=== PATIENT | male | born 1980 | race American Indian/Alaskan Native ===

== ENCOUNTER 2018-03-12 14:47 | Emergency (ER) | payer OTHER ==
[2018-03-12 15:08] VITALS: RESP 18; TEMP 99.3; O2SAT 100; BMI 27.0
[2018-03-12] MEDS ORDERED: Sodium Chloride 0.9% 1,000 ML IV STA (15:46)
--- NOTE | 2018-03-12 16:00 | ED PDOC ---
Arrival/HPI - General Chief Complaint: Headache Time Seen by Provider: 03/12/18 15:21 Historian: Patient - History of Present Illness Narrative History of Present Illness (Text): 03/12/18 15:58 37yo male with no PMHx present with 2days history of generalized malaise, headache, subjective fever,chills, nausea and vomiting. States he took ASA earlier today. Denies abdominal pain, diarrhea, constipation, cough, URI symptoms, neck pain, nuchal ridgity, recent travel, sick contact. Past Medical History - Provider Review Nursing Documentation Reviewed: Yes - Infectious Disease Hx of Infectious Diseases: None - Psychiatric Hx Substance Use: No Family/Social History - Physician Review Nursing Documentation Reviewed: Yes Family/Social History: Unknown Family HX Smoking Status: Never Smoked Hx Alcohol Use: No Hx Substance Use: No Allergies/Home Meds Allergies/Adverse Reactions: Allergies No Known Allergies Allergy (Verified 03/12/18 18:47) Review of Systems - Physician Review All systems were reviewed & negative as marked: Yes - Review of Systems Constitutional: Fatigue, Fevers Eyes: Normal ENT: Normal Respiratory: Normal Cardiovascular: Normal Gastrointestinal: Nausea, Vomiting. absent: Abdominal Pain, Constipation, Diarrhea, Hematemesis Genitourinary Male: Normal Musculoskeletal: Normal Skin: Normal Neurological: Headache. absent: Dizziness, Focal Weakness, Gait Changes, Speech Changes Endocrine: Normal Hemo/Lymphatic: Normal Psychiatric: Normal Physical Exam Vital Signs Reviewed: Yes Vital Signs Temp Pulse Resp BP Pulse Ox 03/12/18 17:05 87 18 124/81 100 03/12/18 14:48 99.3 F 64 18 133/92 H 100 Temperature: Afebrile Blood Pressure: Normal Pulse: Regular Respiratory Rate: Normal Appearance: Positive for: Well-Appearing, Non-Toxic, Comfortable Pain Distress: None Mental Status: Positive for: Alert and Oriented X 3 - Systems Exam Head: Present: Atraumatic, Normocephalic Pupils: Present: PERRL Extroacular Muscles: Present: EOMI Conjunctiva: Present: Normal Mouth: Present: Moist Mucous Membranes Neck: Present: Normal Range of Motion Respiratory/Chest: Present: Clear to Auscultation, Good Air Exchange. No: Respiratory Distress, Accessory Muscle Use, Wheezes, Decreased Breath Sounds, Rales, Retracting, Rhonchi Cardiovascular: Present: Regular Rate and Rhythm, Normal S1, S2. No: Murmurs Abdomen: Present: Other (Soft). No: Tenderness, Distention, Peritoneal Signs, Rebound, Guarding, McBurney's Point Tender, Rovsing's Sign Present Back: Present: Normal Inspection Upper Extremity: Present: Normal Inspection. No: Cyanosis, Edema Lower Extremity: Present: Normal Inspection. No: Edema Neurological: Present: GCS=15, CN II-XII Intact, Speech Normal Skin: Present: Warm, Dry, Normal Color. No: Rashes Psychiatric: Present: Alert, Oriented x 3, Normal Insight, Normal Concentration Medical Decision Making ED Course and Treatment: 03/12/18 17:52 37yo male in ED for malaise, headache, subjective fever/chills x2days. Lab was ordered 1L NS, Toradol 30mg, Zofran ordered Lab was unremarkable with exception of leukopenia, likely secondary to viral syndrome. He had no meningeal signs and denied neck pain in ED. On re evaluation he notes that his symptoms improved in ED with medication. Result was DW the pt and he will be DC home and advised to take analgesic for symptomatic tx and drink plenty of fluid. Advised to f/u with his PMD/clinc for repeat CBC for leukopenia resolution. Advised TRT ED for any new or worsening symptoms. - Lab Interpretations Lab Results: 03/12/18 16:00 03/12/18 16:00 Lab Results 03/12/18 17:55: Urine Color Yellow, Urine Appearance Clear, Urine pH 6.0, Ur Specific [place] 1.025, Urine Protein Negative, Urine Glucose (UA) Negative, Urine Ketones Negative, Urine Blood Negative, Urine Nitrate Negative, Urine Bilirubin Negative, Urine Urobilinogen 0.2, Ur Leukocyte Esterase Negative 03/12/18 16:00: Influenza Typ A,B (EIA) Negative for flu a/b 03/12/18 16:00: Sodium 137, Potassium 3.6, Chloride 100, Carbon Dioxide 26, Anion Gap 14, BUN 17, Creatinine 1.0, Est GFR ( Amer) > 60, Est GFR (Non- Af Amer) > 60, Random Glucose 105, Calcium 9.1, Total Bilirubin 0.2, AST 32, ALT 23, Alkaline Phosphatase 38, Total Creatine Kinase 210, Total Protein 6.8, Albumin 4.0, Globulin 2.8, Albumin/Globulin Ratio 1.4 03/12/18 16:00: PT 12.2, INR 1.07, APTT 29.5 03/12/18 16:00: WBC 3.1 L, RBC 4.91, Hgb 13.3 L, Hct 39.6 L, MCV 80.7, MCH 27.1 , MCHC 33.6, RDW 13.8, Plt Count 146, MPV 9.4, Gran % 38.3 L, Lymph % (Auto) 44.7 H, [place] % (Auto) 16.6 H, Eos % (Auto) 0.0 L, Baso % (Auto) 0.4, Gran # 0.90 L, Lymph # (Auto) 1.1 L, [place] # (Auto) 0.4, Eos # (Auto) 0.0, Baso # (Auto ) 0.01, ESR 5 - Medication Orders Current Medication Orders: Discontinued Medications Sodium Chloride (Sodium Chloride 0.9%) 1,000 mls @ 999 mls/hr IV .Q1H1M STA Stop: 03/12/18 16:46 Last Admin: 03/12/18 15:56 Dose: 999 mls/hr eMAR Start Stop Document 03/12/18 15:56 OCS (Rec: 03/12/18 15:56 OCS [id number]) Intravenous Solution Start Date 03/12/18 Start Time 15:56 End Date 03/12/18 End time 16:57 Total Infusion Time 61 Ketorolac Tromethamine (Toradol) 30 mg IVP STAT STA Stop: 03/12/18 15:48 Last Admin: 03/12/18 15:56 Dose: 30 mg MAR Pain Assessment Document 03/12/18 15:56 OCS (Rec: 03/12/18 15:56 OCS [id number]) Pain Reassessment Is this a pain reassessment? Yes Sleep Is patient sleeping during reassessment? No Presence of Pain Presence of Pain Yes Pain Scale Used Pain Scale Used Numeric Location Pain Location Body Site Generalized Description Description Constant Intensity of Pain at present 10 Pain Behavior Facial Grimacing Aggravating Factors ADL's IVP Administration Document 03/12/18 15:56 OCS (Rec: 03/12/18 15:56 OCS [id number]) Charges for Administration # of IVP Administrations 1 Ondansetron HCl (Zofran Inj) 4 mg IVP STAT STA Stop: 03/12/18 15:47 Last Admin: 03/12/18 15:56 Dose: 4 mg IVP Administration Document 03/12/18 15:56 OCS (Rec: 03/12/18 15:56 OCS [id number]) Charges for Administration # of IVP Administrations 1 Disposition/Present on Arrival - Present on Arrival Any Indicators Present on Arrival: No History of DVT/PE: No History of Uncontrolled Diabetes: No Urinary Catheter: No History of Decub. Ulcer: No History Surgical Site Infection Following: None - Disposition Have Diagnosis and Disposition been Completed?: Yes Diagnosis: Viral syndrome Disposition: HOME/ ROUTINE Disposition Time: 18:15 Patient Plan: Discharge Condition: STABLE Discharge Instructions (ExitCare): Viral Syndrome (DC) Additional Instructions: Follow up with your doctor/Clinic Drink plenty of fluid and take Ibuprofen every 6hrs for pain Return to ED for any new or worsening symptoms Prescriptions: Ibuprofen [Motrin Tab] 600 mg PO Q6 #20 tab Ondansetron ODT [Zofran ODT] 4 mg PO Q6 #7 odt Referrals: PCP,NO [Primary Care Provider] - Follow up with primary Forms: [employer] (South African)
[2018-03-12 16:24] LABS: BASO # 0.01 K/mm3 (0.0-2.0); BASO % 0.4 % (0.0-3.0); GRAN # 0.9 (1.4-6.5); GRAN % 38.3 % (50.0-68.0); HEMOGLOBIN 13.3 g/dL (14.0-18.0); LYMPH # 1.1 (1.2-3.4); LYMPH % 44.7 % (22.0-35.0); MEAN CELL VOLUME 80.7 fl (80.0-105.0); MEAN CORPUSCULAR HEMOGLOBIN 27.1 pg (25.0-35.0); MEAN CORPUSCULAR HGB CONC 33.6 g/dl (31.0-37.0); MEAN PLATELET VOLUME 9.4 fl (7.0-11.0); MONO # 0.4 (0.1-0.6); MONO % 16.6 % (1.0-6.0); RBC 4.91 10^6/uL (3.5-6.1); RED CELL DISTRIBUTION WIDTH 13.8 % (11.5-14.5)
[2018-03-12 16:26] LABS: WHITE BLOOD COUNT 3.1 10^3/ul (4.5-11.0)
[2018-03-12 16:33] LABS: ALB/GLOB RATIO 1.4 (1.1-1.8); ALT/SGPT 23 U/L (7-56); AST/SGOT 32 U/L (17-59); BLOOD UREA NITROGEN 17 mg/dL (7-21); CALCIUM 9.1 mg/dL (8.4-10.5); GFR AFRICAN-AMERICAN > 60; GFR NON-AFRICAN AMERICAN > 60
[2018-03-12 17:01] LABS: INR 1.07 (0.93-1.08); PARTIAL THROMBOPLASTIN TIME 29.5 Seconds (25.1-36.5); PROTHROMBIN TIME 12.2 SECONDS (9.4-12.5)
[2018-03-12 17:06] VITALS: BP 124/81; PULSE 87
[2018-03-12 18:10] LABS: URINE BILIRUBIN NEGATIVE (NEGATIVE); URINE BLOOD NEGATIVE (NEGATIVE); URINE GLUCOSE (UA) NEGATIVE (NEGATIVE); URINE LEUKOCYTE ESTERASE NEGATIVE Leu/uL (NEGATIVE); URINE UROBILINOGEN 0.2 E.U./dL (<1 E.U./dL)
[2018-03-12 18:17] LABS: URINE APPEARANCE CLEAR (CLEAR); URINE COLOR YELLOW (YELLOW); URINE PROTEIN NEGATIVE mg/dL (<30 mg/dL)
== END 2018-03-12 18:37 | disposition home or self-care (01) ==
LOC: ED 14:47
DX: B34.9 Viral infection, unspecified (principal)
CPT/HCPCS: 80053; 81003; 82550; 85025; 85610; 85651; 85730; 87804; 96361; 96374; 96375; 99285; J1885; J2405; J7040

== ENCOUNTER 2018-08-27 12:36 | Emergency (ER) | payer OTHER ==
[2018-08-27 13:14] VITALS: BP 132/80; PULSE 73; RESP 18; TEMP 98.8; O2SAT 100; BMI 25.0
[2018-08-27] MEDS ORDERED: Naproxen 550 mg Tab PO STA (13:18)
--- NOTE | 2018-08-27 13:29 | ED PDOC ---
Arrival/HPI - General Chief Complaint: Finger,Hand,&Wrist Time Seen by Provider: 08/27/18 13:05 Historian: Patient - History of Present Illness Narrative History of Present Illness (Text): 08/27/18 13:10 37 year old male, with no significant past medical history, who presents to the emergency department complaining of bilateral wrist pain for past 3 months, worse yesterday. Patient states he saw a doctor for this before and was given pain medication, with significant relief but symptoms returned. Patient denies taking any current medications, any injury, or any other complaints. Time/Duration: 24 hours (onset 3 months ago, but worse yesterday ) Symptom Onset: Gradual Symptom Course: Unchanged Activities at Onset: Light Past Medical History - Provider Review Nursing Documentation Reviewed: Yes - Infectious Disease Hx of Infectious Diseases: None - Psychiatric Hx Substance Use: No - Anesthesia Hx Anesthesia: No Hx Anesthesia Reactions: No Hx Malignant Hyperthermia: No Family/Social History - Physician Review Nursing Documentation Reviewed: Yes Family/Social History: No Known Family HX Smoking Status: Never Smoked Hx Alcohol Use: No Hx Substance Use: No Allergies/Home Meds Allergies/Adverse Reactions: Allergies No Known Allergies Allergy (Verified 03/12/18 18:47) Review of Systems - Physician Review All systems were reviewed & negative as marked: Yes - Review of Systems Musculoskeletal: Other (patient notes bilateral wrist pain for past 3 months, worse yesterday). absent: Normal Physical Exam Vital Signs Reviewed: Yes Vital Signs Temp Pulse Resp BP Pulse Ox 08/27/18 13:12 98.8 F 73 18 132/80 100 Temperature: Afebrile Blood Pressure: Normal Pulse: Regular Respiratory Rate: Normal Appearance: Positive for: Well-Appearing, Non-Toxic, Comfortable Pain Distress: Mild Mental Status: Positive for: Alert and Oriented X 3 - Systems Exam Head: Present: Atraumatic, Normocephalic Pupils: Present: PERRL Extroacular Muscles: Present: EOMI Conjunctiva: Present: Normal Mouth: Present: Moist Mucous Membranes Neck: Present: Normal Range of Motion Respiratory/Chest: Present: Clear to Auscultation, Good Air Exchange. No: Respiratory Distress, Accessory Muscle Use Cardiovascular: Present: Regular Rate and Rhythm, Normal S1, S2. No: Murmurs Abdomen: No: Tenderness, Distention, Peritoneal Signs Back: Present: Normal Inspection Upper Extremity: Present: Other (Pain with ulnar deviation of right wrist). No: Normal Inspection, Cyanosis, Edema Lower Extremity: Present: Normal Inspection. No: Edema Neurological: Present: GCS=15, CN II-XII Intact, Speech Normal Skin: Present: Warm, Dry, Normal Color. No: Rashes Psychiatric: Present: Alert, Oriented x 3, Normal Insight, Normal Concentration Medical Decision Making ED Course and Treatment: 08/27/18 13:10 Impression: 37 year old male presents to the Emergency department bilateral wrist pain for past 3 months, worse yesterday. Differential Diagnosis included but are not limited to: Plan: -- Anaprox DS -- X-Ray of left wrist, 3 views -- X-ray of right wrist, 3 views -- Reassess and disposition Prior Visits: Notes and results from previous visits were reviewed. Patient was last seen in the emergency department on 03/12/18 with 2days history of generalized malaise, headache, subjective fever,chills, nausea and vomiting. Patient was discharged home in stable condition, given instructions for care and diagnosed with viral syndrome. Progress Notes: 08/27/18 17:33 xr neg pain with ulna deviation no fever, normal rom. advise out pt fu. suspect dequavain tenosynovitis. - RAD Interpretation Narrative RAD Interpretations (Text): X-Ray of right wrist reviewed by radiologist, shows: Dictator : DR. Vann, Karina CESPEDES Report Date : 08/27/2018 14:07:28 FINDINGS: BONES: Bone alignment and mineralization are normal. There is no acute displaced fracture or bone destruction. JOINTS: Normal. No dislocation. SOFT TISSUES: Normal. OTHER FINDINGS: None. IMPRESSION: No acute fracture or dislocation. X-Ray of left wrist reviewed by radiologist, shows: Dictator : Karina Edmondson Report Date : 08/27/2018 14:07:05 FINDINGS: BONES: Bone alignment and mineralization are normal. There is no acute displaced fracture or bone destruction. JOINTS: Normal. No dislocation. SOFT TISSUES: Normal. OTHER FINDINGS: None. IMPRESSION: No acute fracture or dislocation. Radiology Orders: 08/27/18 13:18 WRIST, LEFT 3 VIEWS [RAD] Stat WRIST, RIGHT 3 VIEWS [RAD] Stat Rough And Trueing Machine Operator: Radiologist - Medication Orders Current Medication Orders: Discontinued Medications Naproxen (Anaprox Ds) 550 mg PO STAT STA Stop: 08/27/18 13:19 - Scribe Statement The provider has reviewed the documentation as recorded by the Scribe Trupti Peraza All medical record entries made by the Scribe were at my direction and personally dictated by me. I have reviewed the chart and agree that the record accurately reflects my personal performance of the history, physical exam, medical decision making, and the department course for this patient. I have also personally directed, reviewed, and agree with the discharge instructions and disposition. Disposition/Present on Arrival - Present on Arrival Any Indicators Present on Arrival: No History of DVT/PE: No History of Uncontrolled Diabetes: No Urinary Catheter: No History of Decub. Ulcer: No History Surgical Site Infection Following: None - Disposition Have Diagnosis and Disposition been Completed?: Yes Diagnosis: Tenosynovitis Disposition: HOME/ ROUTINE Disposition Time: 01:00 Condition: STABLE Discharge Instructions (ExitCare): Tenosynovitis (DC) Additional Instructions: followup with specialist. return to er with worsening symptoms or concerns. Prescriptions: RX: Naproxen 500 mg PO BID PRN #20 tablet PRN Reason: Pain, Mild (1-3) Referrals: Yovani Martin DO [Staff Provider] - Follow up with primary Forms: [employer] (Macedonian)
--- NOTE | 2018-08-27 14:12 | RAD ---
Date of service: 08/27/2018 PROCEDURE: Right Wrist Radiographs. HISTORY: pain x 3 mo COMPARISON: None. FINDINGS: BONES: Bone alignment and mineralization are normal. There is no acute displaced fracture or bone destruction. JOINTS: Normal. No dislocation. SOFT TISSUES: Normal. OTHER FINDINGS: None. IMPRESSION: No acute fracture or dislocation.
== END 2018-08-27 14:33 | disposition home or self-care (01) ==
LOC: ED 12:36
DX: M65.9 Synovitis and tenosynovitis, unspecified (principal)

== ENCOUNTER 2019-03-26 09:09 | Emergency (ER) | payer OTHER ==
[2019-03-26 09:28] VITALS: BMI 24.3
--- NOTE | 2019-03-26 09:53 | ED PDOC ---
Arrival/HPI - General Chief Complaint: Back Pain Historian: Patient - History of Present Illness Narrative History of Present Illness (Text): 03/26/19 09:50 38 y/o male, pmh including tenosynovitis, nkda, c/o rt. lower back pain with no fall or trauma. Aching pain started this morning, associated with spasm, no numbness or tingling, no urinary symptoms, no flank pain, no hematuria, no nausea/vomiting/abdominal pain, no diarrhea, no rash, no other medical or psychological complaints. Past Medical History - Provider Review Nursing Documentation Reviewed: Yes - Infectious Disease Hx of Infectious Diseases: None - Cardiac Hx Cardiac Disorders: No - Pulmonary Hx Respiratory Disorders: No - Neurological Hx Neurological Disorder: No - HEENT Hx HEENT Disorder: No - Renal Hx Renal Disorder: No - Endocrine/Metabolic Hx Endocrine Disorders: No - Hematological/Oncological Hx Blood Disorders: No - Integumentary Hx Dermatological Disorder: No - Musculoskeletal/Rheumatological Hx Musculoskeletal Disorders: No - Gastrointestinal Hx Gastrointestinal Disorders: Yes Hx Constipation: Yes - Genitourinary/Gynecological Hx Genitourinary Disorders: No - Psychiatric Hx Psychophysiologic Disorder: No Hx Substance Use: No - Anesthesia Hx Anesthesia: No Hx Anesthesia Reactions: No Hx Malignant Hyperthermia: No Family/Social History - Physician Review Nursing Documentation Reviewed: Yes Family/Social History: Unknown Family HX Smoking Status: Never Smoked Hx Alcohol Use: Yes Frequency of alcohol use: Socially Hx Substance Use: No Allergies/Home Meds Allergies/Adverse Reactions: Allergies No Known Allergies Allergy (Verified 03/26/19 09:28) Review of Systems - Review of Systems Constitutional: absent: Fatigue, Fevers Eyes: absent: Vision Changes ENT: absent: Hearing Changes Respiratory: absent: SOB, Cough, Sputum Cardiovascular: absent: Chest Pain Gastrointestinal: absent: Abdominal Pain, Diarrhea, Nausea, Vomiting Musculoskeletal: Back Pain, Myalgias. absent: Arthralgias, Neck Pain, Joint Swelling Skin: absent: Rash, Pruritis Neurological: absent: Headache, Dizziness Hemo/Lymphatic: absent: Adenopathy, Easy Bleeding Psychiatric: absent: Anxiety, Depression, Suicidal Ideation Physical Exam Vital Signs Reviewed: Yes Vital Signs Temp Pulse Resp BP Pulse Ox 03/26/19 09:31 98.9 F 87 16 127/79 100 Temperature: Afebrile Blood Pressure: Normal Pulse: Regular Respiratory Rate: Normal Appearance: Positive for: Well-Appearing, Non-Toxic, Comfortable Pain Distress: Moderate Mental Status: Positive for: Alert and Oriented X 3 - Systems Exam Head: Present: Atraumatic, Normocephalic Pupils: Present: PERRL Extroacular Muscles: Present: EOMI Conjunctiva: Present: Normal Mouth: Present: Moist Mucous Membranes Neck: Present: Normal Range of Motion Respiratory/Chest: Present: Clear to Auscultation, Good Air Exchange. No: Respiratory Distress, Accessory Muscle Use Cardiovascular: Present: Regular Rate and Rhythm, Normal S1, S2. No: Murmurs Abdomen: No: Tenderness, Distention, Peritoneal Signs Back: Present: Normal Inspection, Other (LS spine: +ttp and spasm noted on the rt. paraspinal muscle region, no cva tenderness, no rash, SLR test is negative, FROM without limitation, sensation intact, motor 5/5, no saddling gait. ). No: CVA Tenderness, Midline Tenderness, Decubitus Ulcer Upper Extremity: Present: Normal Inspection. No: Cyanosis, Edema Lower Extremity: Present: Normal Inspection. No: Edema Neurological: Present: GCS=15, CN II-XII Intact, Speech Normal Skin: Present: Warm, Dry, Normal Color. No: Rashes Psychiatric: Present: Alert, Oriented x 3, Normal Insight, Normal Concentration Medical Decision Making ED Course and Treatment: 03/26/19 09:56 -LS spine xray -Toradol/valium and lidoderm patch -Observe and reassess 03/26/19 12:32 -LS spine xray: ER wet read: no fracture or subluxation. -Pt. feels well and much better, walking with normal gait and posture, no focal neurological deficits. -Discharge home with DUEXIS, flexeril, bed rest, follow up with your own pmd and orthopedic within 2 days, return to the ER for any new or worsening signs or symptoms. - RAD Interpretation Radiology Orders: Date of service: 03/26/2019 PROCEDURE: Radiographs of the Lumbar Spine. HISTORY: rt. lower back pain COMPARISON: No prior. TECHNIQUE: 5 views obtained. FINDINGS: BONES: Normal alignment. No listhesis. No fracture. DISC SPACES: Unremarkable. OTHER FINDINGS: None. IMPRESSION: Unremarkable radiographs of the lumbar spine. Twister Operator: Radiologist - PA / SENIOR CYTOGENETIC TECHNOLOGIST / Resident Statement MD/DO has reviewed & agrees with the documentation as recorded. Disposition/Present on Arrival - Present on Arrival Any Indicators Present on Arrival: No History of DVT/PE: No History of Uncontrolled Diabetes: No Urinary Catheter: No History of Decub. Ulcer: No History Surgical Site Infection Following: None - Disposition Have Diagnosis and Disposition been Completed?: Yes Diagnosis: Low back pain Disposition: HOME/ ROUTINE Disposition Time: 09:56 Patient Plan: Discharge Patient Problems: Current Active Problems Problem Status Onset Low back pain Acute Condition: IMPROVED Additional Instructions: -Discharge home with DUEXIS, flexeril, bed rest, follow up with your own pmd and orthopedic within 2 days, return to the ER for any new or worsening signs or symptoms. Prescriptions: Cyclobenzaprine [Cyclobenzaprine HCl] 10 mg PO TID PRN #21 tab PRN Reason: Other Ibuprofen/Famotidine [Duexis 26.6 mg-800 mg] 1 tab PO TID PRN #21 PRN Reason: Other Referrals: PCP,NO [Primary Care Provider] - Follow up with primary Dora Baker MD [Staff Provider] - Follow up with primary Forms: [employer] (Lao), WORK NOTE
[2019-03-26] MEDS ORDERED: Lidocaine 5% Patch TD STA (09:54)
[2019-03-26 10:30] VITALS: RESP 18
--- NOTE | 2019-03-26 12:35 | RAD ---
Date of service: 03/26/2019 PROCEDURE: Radiographs of the Lumbar Spine. HISTORY: rt. lower back pain COMPARISON: No prior. TECHNIQUE: 5 views obtained. FINDINGS: BONES: Normal alignment. No listhesis. No fracture. DISC SPACES: Unremarkable. OTHER FINDINGS: None. IMPRESSION: Unremarkable radiographs of the lumbar spine.
[2019-03-26 12:48] VITALS: BP 122/78; PULSE 87; TEMP 98.1; O2SAT 98
== END 2019-03-26 12:47 | disposition home or self-care (01) ==
LOC: ED 09:09
DX: M54.5 Low back pain (principal)
CPT/HCPCS: 72110; 96372; 99283; J1885